=== PATIENT | male | born 1955 | race Caucasian/White ===

== ENCOUNTER → 2016-12-06 | Outpatient (CLI) | payer OTHER ==
[~2016-12-06] MED LIST: DOXA-10 PO; GLIM4TAB2 PO; INSU70IN2 SC; LOSA100T65 PO; LPT/20 PO; OXYC-57 PO; ZOLP10TA PO
--- NOTE | 2016-12-07 06:24 | PAP/PSG TECHNICIAN REPORT ---
[facility] Thread Singer Polysomnogram Report Study name: None Report date: 12/07/2016 Study date: 12/06/2016 Referring Physician: Dr.Scott Hastings Name: SHAKILA MCCARTNEY Interpreting Physician: Kylie Bates M.D. Date of : 1955 Thread Singer: Alexandrea Forrest, PSGT. Sex: Male Age: 61 StudyType: PSG Weight: 261 lbs Height: 61 years, Height 6' 1" Neck Circum:18 inches BMI: 34.43 Medications: Percocet 5-325 mg, Temovate, Novolin insulin, Aspirin 81 mg, Norvasc 5 mg, Lopressor 50 mg, Amaryl 4 mg, Losartan Potassium 100 mg, Lipitor 20 mg. Patient History 61 yr. old male in room 7, presents tonight for a diagnostic sleep study. Pt. states that he sleeps between 4 am and 6 am. He has to use the restroom x 10 per night. He has daytime fatigue denies snoring, he keeps the t.v. on all night and request a urinal for the study. Ess= 12, neck = 18 inches. Parameters Monitored NPSG: E1-M2, E2-M1, Fp1-M2, Fp2-M1, F3-M2, F4-M2, F4-M1, C3-M2, C4-M2, C4-M1, O1-M2, O2-M2, O2-M1, T3-M2, T4-M1, P3-M2, P4-M1, CHIN1, CHIN2, HR, EKG, Legs, PFLOW, SNOR, FLOW, CFLOW, Tidal Volume, THOR, ABDO, SpO2, PLTH, CPRESS, ETCO2 Wave, ETCO2, pH Sleep Architecture Sleep Stages Time at Lights Off 8:37:40 PM STAGES Time (min.) TST (%) Time at Lights On 5:21:10 AM Wake 276.5 -- Total Recording Time (TRT) 523.50 min. N1 8.0 3 Total Sleep Period (TSP) 395.5 min. N2 220.5 89 Total Sleep Time (TST) 246.5min. N3 0.0 0 Awake Time 277.0 min. REM 18.0 7 Wake after Sleep Onset 155.5 min. Sleep Efficiency (SE) 47 % Sleep Onset Latency (YUE) 121.5 min. Number of Stage 1 Shifts None Awakenings 6 Stage Changes 24 Number of REM periods 3 REM 18.0 7 REM Latency 213.0 min. NREM 228.5 93 Body Position Analysis Supine Right Left Side Prone Vertical Total Sleep Time (min.) 2.5 246.5 0.0 246.50 0.0 0.0 Total Sleep Time (%) 0% 100% 0% 100 0% N/A% Total Sleep Time REM (min.) 0.0 18.0 0.0 None 0.0 0.0 Total Sleep Time NREM (min.) 0.0 228.5 0.0 None 0.0 0.0 Intermittent Wake (min.) 2.5 274.0 0.0 None 0.0 0.0 Total Sleep Period (%) 1% None None None None None Arousals Myoclonus (PLM) * Events Count Index Events Count Index Spontaneous 14 3 Events Awake (PLMW) 14 3.0 Respiratory 1 0.2 Events Asleep w/ Arousal (PLMA) 1 0.2 PLM 1 0 Events Asleep w/o Arousal (PLMS) 226 55.0 Snoring 2 0 Total Asleep 227 55.3 Total 18 4 Total 241 28 Respiratory Analysis * CA OA MA CH H RERA Total Count 4 7 1 0 14 0 26 Index 1.0 1.7 0.2 0 3.4 0 6.3 Mean Duration 17.1 15.8 14.0 0.00 15.4 0.0 15.7 Longest Duration 19.2 19.7 14.0 0.00 14.0 0.0 23.1 Respiratory Event Summary Total Supine ~Supine Right Left Prone REM NREM Apneas Count 12 N/A 12 12 N/A N/A 1 11 Index 2.9 N/A 3 2.9 N/A N/A 3 3 Hypopneas (4% Desat) Count 14 N/A 14 14 N/A N/A 0 14 Index 3.4 N/A 3 3.4 N/A N/A 0.0 3.7 Apneas & All Hypopneas Count 26 N/A 26 26 N/A N/A 1 25 Index 6.3 N/A 6 6 N/A N/A 3.3 6.6 Respiratory Events (Hand Cooper Helper+All Hyp+RERA) Count 26 N/A 26 26 N/A N/A 1 25 Index 6.3 N/A 6 6.3 N/A N/A 3.3 6.6 Respiratory Related Arousal Count 1 N/A 1 1 N/A N/A 0 1 Index 0.2 N/A 0 0 N/A N/A 0 0 Snoring Analysis Supine Right Left Prone REM NREM Total Snore duration 5.8 min Snores count N/A 217 N/A N/A 25 192 217 Snore mean duration 1.6 Sec Snores index N/A 53 N/A N/A 83.3 50.4 52.8 TST with snoring (%) 2.4% SpO2 Analysis Total REM NREM Awake <50% 0.0 min. 0.0 min. 0.0 min. 0.0 min. 51 - 60% 0.0 min. 0.0 min. 0.0 min. 0.0 min. 61 - 70% 0.0 min. 0.0 min. 0.0 min. 0.0 min. 71 - 80% 0.0 min. 0.0 min. 0.0 min. 0.0 min. 81 - 90% 4.3 min. 0.3 min. 0.6 min. 3.4 min. 91 - 100% 517.4 min. 17.7 min. 227.9 min. 271.8 min. Average 93 93 93 94 Minimum SpO2 87 87 90 88 Desaturation Event Index 2.6 0.0 6.0 0.0 # Desat. Events below 89% N/A N/A N/A N/A Time(%) with Saturation below 89% 0.1 0.0 0.0 0.1 Time(min.) with Saturation below 89% 0.5 0.1 0.0 0.3 Heart Rate Analysis End Tidal CO2 Analysis Min (bpm) Max (bpm) Average (bpm) TSP (mins) % of TSP Awake 63 103 80 Above 55 mmHg 0.0 0.0 NREM 59 85 70 50-55 mmHg 0.0 0.0 REM 64 82 72 45-50 mmHg 0.0 0.0 Overall 59 85 70 40-45 mmHg 87.3 35.4 35-40 mmHg 141.8 57.5 30-35 mmHg 17.4 7.0 Average ETCO2 0.1 Supplemental O2 Values Minimum O2 level: None Value Start Time End Time Thread Singer Comments PSG Study slept in the right, and supine positions. No cardiac arrhythmia, PLM's noted. No bruxism noted. Snoring was noted and scored as a 3 on a scale of 1 through 5. (0=no snoring, 5=snoring loud enough to be heard through a closed door or down the [address] way) awoke to use the restroom 7 times during the night. Mr. Mccartney stated, I did sleep as well as I do when I am in my own bed. The final report will be interpreted and signed by a sleep physician. The completed physician report will then be placed in the patient medical record. Pt. had a long onset to sleep. He was up to use the urinal 7 times, he states that he drinks at least 4 gallons of water a day. (he had 5 small bottles here.) Pt. slept on his rt. side. Watched t.v. on his back .Respiratory events seen while sleeping. Therapy (cm H2O) 0 TIB (min.) 523.0 TST (min.) 246.5 Sleep Onset (min.) 121.5 REM Onset From Sleep (min.) 213.0 Sleep Efficiency % 47 Wakefulness (%) 53 Wakefulness (min.) 277.0 NREM 1 (%) 3 NREM 1 (min.) 8.0 NREM 2 (%) 89 NREM 2 (min.) 220.5 NREM 3 (%) 0 NREM 3 (min.) 0.0 REM (%) 7 REM (min.) 18.0 # Arousals 18 Arousal Index 4 # Snore 217 Snore Index 52.8 AHI 6.3 AHI Supine N/A AHI Non-Supine 6 NREM AHI 6.6 REM AHI 3.3 RDI 6.3 # Obstructive Apnea 7 # Central Apnea 4 # Mixed Apnea 1 # Hypopneas 14 RERAs 0 Total Respiratory Events 30 Time Below SpO2 89% (min.) 0.1 Mean NREM SpO2 (%) 93 Mean REM SpO2 (%) 93 Mean Sleep SpO2 (%) 93 Min NREM SpO2 (%) 90 Min REM SpO2 (%) 87 Position Supine (min.) 2.5 Position Non-supine (min.) 246.5 LM Index Sleep 55.3 LM Index NREM 55.4 LM Index REM 53.3 Mean Heart Rate (bpm) 70 Min Heart Rate (bpm) 59
--- NOTE | 2016-12-21 08:59 | POLYSOMNOGRAPH REPORT ---
REFERRING PERSON: Dr. Jack Bates. LPN PER DIEM: Keerthi Forrest. The patient is a 61-year-old male sent for a diagnostic sleep study. He sleeps between 4 and 6 a.m. Uses the bathroom 10 times per night. He has excessive daytime sleepiness, but denies snoring. He states that he keeps the TV on all night and requested a urinal for this study. His [place] sleepiness scale score on the evening of this study is 12, BMI is 34.43. This patient's total sleep period time was 395.5 minutes. Total sleep time was 246.5 minutes. Sleep efficiency was 47%. Latency to sleep onset was 121.5 minutes with wake after sleep onset of 155.5 minutes. Total non-REM sleep time was 228.5 minutes. He spent 3% of that time in N1 sleep, 89% in N2 sleep and no time in N3 sleep. This is abnormal non-REM sleep architecture with a propensity for superficial sleep. REM latency was 213 minutes. Total REM sleep time was 18 minutes or 7% of total sleep time. There were 18 cortical arousals from sleep. Fourteen of these arousals were spontaneous, 2 were due to snoring, 1 due to periodic limb movements of sleep and 1 was due to a respiratory event. There were 227 periodic limb movements noted on this test. Limb movement index was 55.3. Limb movement with arousal index was 0.2. There were 4 central, 7 obstructive and 1 mixed apnea on this test. There were 14 hypopnea and no RERA. Apnea-hypopnea index was elevated at 6.3. This is consistent with mild sleep apnea. 217 snoring events were recorded. Total sleep time with snoring was 2.4%. Mean saturation was 93% with desaturations to 87%. Saturations were less than 89% for 0.5 minutes of recorded time. There was no cardiac ectopy noted on this study. Heart rates ranged from a low of 59 beats per minute to a high of 85 beats per minute during sleep. End-tidal CO2 was recorded on this test. End tidal CO2s were between 40 and 45 mmHg for 35.4% of total sleep period time, between 35 and 40 mmHg for 57.5% and between 30 and 35 mmHg for 7% of total sleep period time. IMPRESSION AND PLAN: A 61-year-old male with evidence of mild sleep apnea without nocturnal hypoxemia on this sleep study. He typically complains of nocturia and sleep maintenance insomnia. 1. This patient would likely benefit from positive airway pressure therapy. He should return to the sleep lab for a full night titration and then based on those results be started on equipment at home. A download from his machine should be reviewed in 1 month both to check compliance as well as AHI and further pressure adjustments occur at that time. 2. Alternatively, this patient could be started on auto titrating CPAP with pressures of 5-15 cm. A download from his machine reviewed in 1 month and set to optimal pressure at that time. 3. Should this patient be unwilling or unable to tolerate CPAP, he could be referred to ear, nose and throat or oral surgery/dental medicine to discuss alternative treatments for sleep disordered breathing.
== END | disposition home or self-care (01) ==
LOC: C.NEUR 20:00
PROVIDERS: ATTEND Family Medicine
DX: G47.10 Hypersomnia, unspecified (principal); E66.9 Obesity, unspecified; G47.00 Insomnia, unspecified

== ENCOUNTER 2016-12-30 16:53 | Emergency (ER) | payer OTHER ==
[~2016-12-30] VITALS: Ht 185.4 cm; Wt 115.3 kg
[~2016-12-30 16:53] MED LIST changes: -OXYC-57 PO
[2016-12-30 17:16] VITALS: BP 172/87; PULSE 86; TEMP 36.7; O2SAT 96; Ht 185.4 cm; Wt 115.3 kg
== END 2016-12-30 17:15 | disposition left against medical advice (07) ==
LOC: C.EDB 16:54
DX: R10.9 Unspecified abdominal pain (principal)